=== PATIENT | female | born 1930 | race Caucasian/White ===

== ENCOUNTER 2016-11-03 14:05 | Emergency (ER) | payer MEDICARE, BC ==
[~2016-11-03] VITALS: Ht 162.6 cm; Wt 63.5 kg
[2016-11-03 14:05] VITALS: BP 125/81
[~2016-11-03 14:05] MED LIST: CHOL100013 PO; CIPR500T94 PO; FLUO40CA2 PO; LEVO50TA5 PO; PHEN100C PO; PHEN30CA PO
--- NOTE | 2016-11-03 15:00 | RAD ---
Indication: Fall with left hip pain. Time of exam 1454 hours. 2 views of the left hip were obtained. There is normal femoral acetabular alignment. Femoral head and neck are intact. No fractures are seen. Impression: No acute bony abnormality is detected.
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
[2016-11-03] MEDS ORDERED: IBUP-1027 PO (15:24)
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
== END 2016-11-03 15:35 | disposition home or self-care (01) ==
LOC: ER 14:05
DX: S93.402A Sprain of unspecified ligament of left ankle, initial encounter (principal); S70.02XA Contusion of left hip, initial encounter; Y04.2XXA Assault by strike against or bumped into by another person, initial encounter; Y93.89 Activity, other specified; Y92.89 Other specified places as the place of occurrence of the external cause; Y99.8 Other external cause status
CPT/HCPCS: 29515; 73502; 73610; 99284-25

== ENCOUNTER 2017-03-13 18:28 | Emergency (ER) | payer MEDICARE, BC ==
[~2017-03-13] VITALS: Ht 162.6 cm; Wt 63.5 kg
[~2017-03-13 18:28] MED LIST changes: +IBUP-1027 PO
[2017-03-13 19:15] LABS: BILIRUBIN,URINE NEGATIVE (NEG); GLUCOSE,URINE NEGATIVE (NEG); NITRITE,URINE NEGATIVE (NEG); PH,URINE 5.5; PROTEIN,URINE 30 mg/dL (NEG-TRACE); UROBILINOGEN,URINE 0.2 mg/dL (0.2 mg/dL)
[2017-03-13 19:21] LABS: BARBITURATES NEG (NEG); BENZODIAZEPINES NEG (NEG); CANNABINOIDS NEG (NEG); COCAINE NEG (NEG); METHADONE NEG (NEG); OPIATES NEG (NEG); PHENCYCLIDINE NEG (NEG)
[2017-03-13 19:24] LABS: BACTERIA,URINE FEW /HPF (0-FEW); SQUAMOUS EPITHELIAL CELL,UR FEW /LPF
[2017-03-13 19:45] LABS: BASO % 1 % (0-3); EOS % 0 % (0-3); HEMATOCRIT 38.6 % (36.0-47.0); HEMOGLOBIN 13.4 g/dL (12.0-15.5); LYMPH # 1.5 x10^3/uL (1.0-4.8); LYMPH % 26 % (24-48); MEAN CORPUSCULAR HEMOGLOBIN 30 pg (25-35); MEAN CORPUSCULAR HGB CONC 35 g/dL (31-37); MEAN CORPUSCULAR VOLUME 87 fL (79-100); MONO % 7 % (0-9); NEUT % 65 % (31-73); PLATELET COUNT 242 x10^3/uL (140-400); RED BLOOD COUNT 4.43 x10^6/uL (3.50-5.40); RED CELL DISTRIBUTION WIDTH 13.7 % (11.5-14.5); WHITE BLOOD COUNT 5.6 x10^3/uL (4.0-11.0)
[2017-03-13 19:46] LABS: CALCIUM 8.7 mg/dL (8.5-10.1); CREATININE 0.7 mg/dL (0.6-1.0); POTASSIUM 4.4 mmol/L (3.5-5.1)
[2017-03-13 19:51] LABS: ALBUMIN 3.6 g/dL (3.4-5.0); ALBUMIN/GLOBULIN RATIO 0.9 (1.0-1.7); TOTAL BILIRUBIN 0.9 mg/dL (0.2-1.0); TOTAL PROTEIN 7.7 g/dL (6.4-8.2)
[2017-03-13] MEDS ORDERED: NITROFURANTOIN MONOHYD/M-CRYST 100 MG CAPSULE. PO ONE (20:30)
[2017-03-13] MEDS ORDERED: NITR100C62 PO (21:16)
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
[2017-03-13 22:30] VITALS: BP 150/83
--- NOTE | 2017-03-14 07:51 | EKG ---
[facility] [address] [place] [id number] Test Date: 2017-03-13 Test Time: 19:31:24 Pat Name: LASHONDA MAYER Department: Room: Gender: F Speech Therapy Teacher: : 1930 Requested By: ROBERT TSAI Order Number: [id number] Reading MD: Robyn Obrien Measurements Intervals Pavilion Rate: 66 P: OK: QRS: -7 QRSD: 88 T: 20 QT: 396 QTc: 417 Interpretive Statements SINUS RHYTHM LEFTWARD AXIS NORMAL ECG Electronically Signed On 03-17-2017 10:56:02 CDT by Robyn Obrien
== END 2017-03-13 23:04 | disposition home or self-care (01) ==
LOC: ER 18:28
DX: F32.9 Major depressive disorder, single episode, unspecified (principal); N39.0 Urinary tract infection, site not specified; R45.851 Suicidal ideations; F41.9 Anxiety disorder, unspecified
CPT/HCPCS: 36415; 80053; 80307; 81001; 85025; 87086; 87186; 93005; 99285-25; G0479

== ENCOUNTER 2017-11-22 10:59 | Inpatient (IN) | payer MEDICARE, BC ==
[2017-11-22 12:07] LABS: ADD MAN DIFF? NO
[2017-11-22 12:10] LABS: BASO % 1 % (0-3); EOS % 1 % (0-3); HEMATOCRIT 38.5 % (36.0-47.0); HEMOGLOBIN 13.3 g/dL (12.0-15.5); LYMPH # 1.2 x10^3/uL (1.0-4.8); LYMPH % 30 % (24-48); MEAN CORPUSCULAR HEMOGLOBIN 32 pg (25-35); MEAN CORPUSCULAR HGB CONC 35 g/dL (31-37); MEAN CORPUSCULAR VOLUME 92 fL (79-100); MONO # 0.4 x10^3/uL (0.0-1.1); MONO % 11 % (0-9); NEUT # 2.4 x10^3uL (1.8-7.7); NEUT % 58 % (31-73); PLATELET COUNT 229 x10^3/uL (140-400); RED CELL DISTRIBUTION WIDTH 13.3 % (11.5-14.5); WHITE BLOOD COUNT 4.1 x10^3/uL (4.0-11.0)
[2017-11-22 12:16] LABS: BILIRUBIN,URINE NEGATIVE (NEG); CLARITY,URINE CLEAR; COLOR,URINE YELLOW; GLUCOSE,URINE NEGATIVE (NEG); NITRITE,URINE POSITIVE (NEG); PROTEIN,URINE NEGATIVE (NEG-TRACE)
[2017-11-22 12:24] LABS: ANION GAP 9 (6-14); BACTERIA,URINE MANY /HPF (0-FEW); BLOOD UREA NITROGEN 16 mg/dL (7-20); CALCIUM 7.9 mg/dL (8.5-10.1); CARBON DIOXIDE 27 mmol/L (21-32); CHLORIDE 111 mmol/L (98-107); CREATININE 0.7 mg/dL (0.6-1.0); GFR 78.8; GLUCOSE 90 mg/dL (70-99); POTASSIUM 3.7 mmol/L (3.5-5.1); SODIUM 147 mmol/L (136-145); SQUAMOUS EPITHELIAL CELL,UR MOD /LPF; WBC,URINE 20-40 /HPF (0-4)
[2017-11-22 12:30] LABS: ALBUMIN 2.9 g/dL (3.4-5.0); ALK PHOS 84 U/L (46-116); ALT (SGPT) 19 U/L (14-59); AST (SGOT) 18 U/L (15-37); DIRECT BILIRUBIN 0.1 mg/dL (0.0-0.2); LIPASE 74 U/L (73-393); TOTAL BILIRUBIN 0.3 mg/dL (0.2-1.0); TOTAL PROTEIN 6.7 g/dL (6.4-8.2)
[2017-11-22 12:30] LABS: TROPONINI < 0.017 ng/mL (0.000-0.055)
[2017-11-22] MEDS ORDERED: ONDANSETRON PF 4 MG/2 ML VIAL. IV (13:45)
[2017-11-22] MEDS: ENOXAPARIN 40 MG/0.4 ML SYRINGE. SQ (17:57)
[2017-11-22] MEDS: DIPHTH,PERTUSS(ACELL),TET TOX 0.5 ML DISP.SYRIN. VAX IM (17:57)
[2017-11-22] MEDS: FLUoxetine HCL 20 MG CAPSULE PO (17:58)
[2017-11-22] MEDS: IV NORMAL SALINE 1000ML BAG 1,000 ML IV ×2 (18:00→21:43)
[2017-11-22] MEDS ORDERED: MAGNESIUM HYDROXIDE 2,400 MG/30 ML ORAL.SUSP. PO (21:00)
[2017-11-22] MEDS ORDERED: OLANZapine 2.5 MG TABLET PO (21:00)
[2017-11-22] MEDS ORDERED: METHYL SALICYLATE/MENTHOL TOPICAL OINTMENT 29GM TUBE. TP ×2 (21:00)
[2017-11-22] MEDS ORDERED: DIPHENOXYLATE/ATROPINE TABLET. PO (21:00)
[2017-11-22] MEDS: PHENYTOIN SODIUM EXTENDED 100 MG CAPSULE PO (21:42)
[2017-11-22] MEDS: PHENYTOIN SODIUM EXTENDED 30 MG CAPSULE. PO (21:42)
[2017-11-22] MEDS: VALPROIC ACID (AS SODIUM SALT) 250 MG/5 ML SOLUTION. PO (21:42)
[2017-11-22] MEDS: traZODone 50 MG TABLET. PO (21:42)
[2017-11-22] MEDS: risperiDONE 0.25 MG TABLET. PO (21:43)
[2017-11-23] MEDS: ACETAMINOPHEN 325 MG TABLET. PO (01:23)
[2017-11-23] MEDS: MORPHINE SULFATE 4 MG/ML DISP.SYRIN. IV (04:15)
[2017-11-23] MEDS: IV NORMAL SALINE 1000ML BAG 1,000 ML IV (04:16)
[2017-11-23 04:39] LABS: ADD MAN DIFF? NO
[2017-11-23 04:54] LABS: BASO % 1 % (0-3); EOS % 1 % (0-3); HEMATOCRIT 33.4 % (36.0-47.0); HEMOGLOBIN 11.7 g/dL (12.0-15.5); LYMPH # 1.3 x10^3/uL (1.0-4.8); LYMPH % 40 % (24-48); MEAN CORPUSCULAR HEMOGLOBIN 33 pg (25-35); MEAN CORPUSCULAR HGB CONC 35 g/dL (31-37); MEAN CORPUSCULAR VOLUME 94 fL (79-100); MONO # 0.4 x10^3/uL (0.0-1.1); MONO % 12 % (0-9); NEUT # 1.6 x10^3uL (1.8-7.7); NEUT % 47 % (31-73); PLATELET COUNT 186 x10^3/uL (140-400); RED BLOOD COUNT 3.55 x10^6/uL (3.50-5.40); RED CELL DISTRIBUTION WIDTH 13.3 % (11.5-14.5); WHITE BLOOD COUNT 3.4 x10^3/uL (4.0-11.0)
[2017-11-23 05:18] LABS: ANION GAP 8 (6-14); BLOOD UREA NITROGEN 12 mg/dL (7-20); CALCIUM 7.4 mg/dL (8.5-10.1); CARBON DIOXIDE 25 mmol/L (21-32); CHLORIDE 110 mmol/L (98-107); CREATININE 0.6 mg/dL (0.6-1.0); GFR 94.1; GLUCOSE 92 mg/dL (70-99); POTASSIUM 3.5 mmol/L (3.5-5.1); SODIUM 143 mmol/L (136-145)
[2017-11-23] MEDS: LEVOTHYROXINE 50 MCG TABLET PO (05:54)
[2017-11-23] MEDS: VALPROIC ACID (AS SODIUM SALT) 250 MG/5 ML SOLUTION. PO ×2 (09:36→21:45)
[2017-11-23] MEDS: CLOPIDOGREL BISULFATE 75 MG TABLET PO (09:37)
[2017-11-23] MEDS: FLUoxetine HCL 20 MG CAPSULE PO (09:37)
[2017-11-23] MEDS: CHOLECALCIFEROL (VITAMIN D3) 1,000 UNIT TABLET PO (09:37)
[2017-11-23] MEDS: CYANOCOBALAMIN (VITAMIN B-12) 1,000 MCG TABLET. PO (09:37)
[2017-11-23] MEDS: LORazepam 1 MG TABLET PO (12:24)
[2017-11-23] MEDS: ENOXAPARIN 40 MG/0.4 ML SYRINGE. SQ (15:57)
[2017-11-23] MEDS: cefTRIAXone IV Push 1 GM VIAL. IVP (15:58)
[2017-11-23] MEDS: risperiDONE 0.25 MG TABLET. PO (21:45)
[2017-11-23] MEDS: PHENYTOIN SODIUM EXTENDED 100 MG CAPSULE PO (21:45)
[2017-11-23] MEDS: traZODone 50 MG TABLET. PO (21:46)
[2017-11-23] MEDS: PHENYTOIN SODIUM EXTENDED 30 MG CAPSULE. PO (21:46)
[2017-11-23] MEDS: LACTOBACILLUS RHAMNOSUS GG 1 CAPSULE. PO (21:46)
[2017-11-24] MEDS: LEVOTHYROXINE 50 MCG TABLET PO (06:28)
[2017-11-24] MEDS: ACETAMINOPHEN 325 MG TABLET. PO (06:28)
[2017-11-24] MEDS: CLOPIDOGREL BISULFATE 75 MG TABLET PO (08:40)
[2017-11-24] MEDS: LACTOBACILLUS RHAMNOSUS GG 1 CAPSULE. PO ×2 (08:40→20:39)
[2017-11-24] MEDS: VALPROIC ACID (AS SODIUM SALT) 250 MG/5 ML SOLUTION. PO ×2 (08:40→20:38)
[2017-11-24] MEDS: FLUoxetine HCL 20 MG CAPSULE PO (08:40)
[2017-11-24] MEDS: CHOLECALCIFEROL (VITAMIN D3) 1,000 UNIT TABLET PO (08:41)
[2017-11-24] MEDS: CYANOCOBALAMIN (VITAMIN B-12) 1,000 MCG TABLET. PO (08:41)
[2017-11-24] MEDS: LORazepam 1 MG TABLET PO (14:33)
[2017-11-24] MEDS: cefTRIAXone IV Push 1 GM VIAL. IVP (14:40)
[2017-11-24] MEDS: ENOXAPARIN 40 MG/0.4 ML SYRINGE. SQ (16:00)
[2017-11-24] MEDS: PHENYTOIN SODIUM EXTENDED 30 MG CAPSULE. PO (20:39)
[2017-11-24] MEDS: PHENYTOIN SODIUM EXTENDED 100 MG CAPSULE PO (20:39)
[2017-11-24] MEDS: traZODone 50 MG TABLET. PO (20:39)
[2017-11-24] MEDS: risperiDONE 0.25 MG TABLET. PO (20:39)
[2017-11-25] MEDS: LEVOTHYROXINE 50 MCG TABLET PO (06:16)
[2017-11-25] MEDS: CYANOCOBALAMIN (VITAMIN B-12) 1,000 MCG TABLET. PO (09:02)
[2017-11-25] MEDS: LACTOBACILLUS RHAMNOSUS GG 1 CAPSULE. PO (09:02)
[2017-11-25] MEDS: CHOLECALCIFEROL (VITAMIN D3) 1,000 UNIT TABLET PO (09:02)
[2017-11-25] MEDS: FLUoxetine HCL 20 MG CAPSULE PO (09:03)
[2017-11-25] MEDS: CLOPIDOGREL BISULFATE 75 MG TABLET PO (09:03)
[2017-11-25] MEDS: LORazepam 1 MG TABLET PO (09:03)
[2017-11-25] MEDS: VALPROIC ACID (AS SODIUM SALT) 250 MG/5 ML SOLUTION. PO (09:04)
[2017-11-25] MEDS: cefTRIAXone IV Push 1 GM VIAL. IVP (15:44)
[2017-11-25] MEDS: ENOXAPARIN 40 MG/0.4 ML SYRINGE. SQ (15:44)
== END 2017-11-25 18:18 | disposition home or self-care (01) | DRG 689 ==
LOC: ER 10:59 → 6 SOUTH 13:33
DX: N39.0 Urinary tract infection, site not specified (principal); G93.41 Metabolic encephalopathy; F03.90 Unspecified dementia, unspecified severity, without behavioral disturbance, psychotic disturbance, mood disturbance, and anxiety; E78.5 Hyperlipidemia, unspecified; E89.0 Postprocedural hypothyroidism; F32.9 Major depressive disorder, single episode, unspecified; F41.9 Anxiety disorder, unspecified; J30.2 Other seasonal allergic rhinitis; M19.90 Unspecified osteoarthritis, unspecified site; S60.812A Abrasion of left wrist, initial encounter; X78.9XXA Intentional self-harm by unspecified sharp object, initial encounter; Z81.8 Family history of other mental and behavioral disorders; Z85.3 Personal history of malignant neoplasm of breast; Z85.820 Personal history of malignant melanoma of skin; Z86.73 Personal history of transient ischemic attack (TIA), and cerebral infarction without residual deficits; Z90.11 Acquired absence of right breast and nipple; Z90.710 Acquired absence of both cervix and uterus; Z90.49 Acquired absence of other specified parts of digestive tract; Y93.89 Activity, other specified; Y92.89 Other specified places as the place of occurrence of the external cause; Y99.8 Other external cause status
CPT/HCPCS: 36415; 70450; 80048; 80076; 81001; 83690; 84484; 85025; 87086; 87186; 90715; 93005; 96374; 99285; 99285-25; J0690; J0696; J1650; J2270; J7030

== ENCOUNTER 2018-01-12 18:32 | Emergency (ER) | payer MEDICARE, MEDICAID | END 2018-01-12 23:22 | disposition home or self-care (01) | LOC: ER 18:32 | DX: S09.90XA Unspecified injury of head, initial encounter (principal); W18.39XA Other fall on same level, initial encounter; Y93.89 Activity, other specified; Y99.8 Other external cause status; Y92.89 Other specified places as the place of occurrence of the external cause | CPT/HCPCS: 70450; 72125; 99284-25 ==

== ENCOUNTER 2018-02-10 16:04 | Emergency (ER) | payer MEDICARE, MEDICAID ==
[~2018-02-10] VITALS: Ht 162.6 cm; Wt 63.5 kg
[~2018-02-10 16:04] MED LIST changes: +ACET325T9 PO; +CHOL2000 PO; +CLOP75TA PO; +CYAN10005 PO; +DIPH1TAB PO; +FLUO40CA9 PO; +LORA-434 PO; +MAGN400O7 PO; +METH85CR17 TP; +NITR100C62 PO; +OLAN2.5T3 PO; +RISP0.5T24 PO; +TRAZ-85 PO; +VALP250S PO
--- NOTE | 2018-02-10 16:16 | PHYS DOC ---
Past Medical History Past Medical History: Anxiety, Cancer, Depression, Seizure, UTI, Other Additional Past Medical Histor: BREAST CANCER, MELANOMA Past Surgical History: Cancer Surgery, Cholecystectomy, Hysterectomy, Other Additional Past Surgical Histo: R MASTECTOMY, THYROIDECTOMY Alcohol Use: None Drug Use: None Adult General Chief Complaint Chief Complaint: MECHANICAL FALL HPI HPI 87-year-old female presenting to the emergency room and a mechanical fall while at her nursing care facility. She was getting a snack, trying to place a dollar into the machine but was having trouble with the machine. she tripped and fell backwards and hit the back of her head. She denies loss of consciousness. She reports being on blood thinners however the patient's alf facility sent the patient's paperwork with her which shows her medications. There is no blood thinner on the list they gave us. The patient has a history of seizures and takes phenytoin. No tongue biting occurred, no loss of consciousness, no fecal or urinary incontinence. Review of systems is negative for neck pain chest pain shortness of breath abdominal pain or any other injuries. All other review of systems is negative unless otherwise noted in history of present illness. ED course: 87-year-old female presenting with head injury after fall. Head CT and neck CT obtained along with blood work. Secondary survey shows no other signs of acute traumatic injury. CBC unremarkable. Head and neck CT are unremarkable for acute injury. Coags within normal limits. Chemistry pending. Plan is to discharge patient if chemistry panel is unremarkable. Dr. Carrillo will f/u on chem panel. Review of Systems Review of Systems SEE ABOVE. Allergies Allergies Allergies Coded Allergies Type Severity Reaction Last Updated Verified No Known Drug Allergies 04/12/16 No Physical Exam Physical Exam SEE ABOVE Constitutional: Well developed, well nourished, no acute distress, non-toxic appearance. [] HENT: Normocephalic, patient has an abrasion to the posterior occiput. Bleeding is well controlled. No lacerations. No depressed skull fracture to palpation. Bilateral external ears normal, oropharynx moist, no oral exudates, nose normal. [] Eyes: PERRLA, EOMI, conjunctiva normal, no discharge. [] Neck: Normal range of motion, no tenderness, supple, no stridor. [] Cardiovascular:Heart rate regular rhythm, no murmur [] Lungs & Thorax: Bilateral breath sounds clear to auscultation [] Abdomen: Bowel sounds normal, soft, no tenderness, no masses, no pulsatile masses. [] Skin: Warm, dry, no erythema, no rash. [] Back: No tenderness, no CVA tenderness. [] Extremities: No tenderness, no cyanosis, no clubbing, ROM intact, no edema. Abrasions lacerations or ecchymosis to the arms or legs. Neurologic: Alert and oriented X 3, normal motor function, normal sensory function, no focal deficits noted. [] Psychologic: Affect normal, judgement normal, mood normal. [] Current Patient Data Vital Signs Vital Signs Date Time Temp Pulse Resp B/P (MAP) Pulse Ox O2 Delivery O2 Flow Rate FiO2 02/10/18 16:04 98.1 66 18 140/65 (90) 97 Room Air 98.1 Lab Values Laboratory Tests Test 02/10/18 17:22 White Blood Count 3.8 x10^3/uL (4.0-11.0) L Red Blood Count 3.89 x10^6/uL (3.50-5.40) Hemoglobin 12.5 g/dL (12.0-15.5) Hematocrit 36.3 % (36.0-47.0) Mean Corpuscular Volume 93 fL (79-100) Mean Corpuscular Hemoglobin 32 pg (25-35) Mean Corpuscular Hemoglobin Concent 35 g/dL (31-37) Red Cell Distribution Width 13.9 % (11.5-14.5) Platelet Count 196 x10^3/uL (140-400) Neutrophils (%) (Auto) 53 % (31-73) Lymphocytes (%) (Auto) 35 % (24-48) Monocytes (%) (Auto) 9 % (0-9) Eosinophils (%) (Auto) 2 % (0-3) Basophils (%) (Auto) 1 % (0-3) Neutrophils # (Auto) 2.0 x10^3uL (1.8-7.7) Lymphocytes # (Auto) 1.3 x10^3/uL (1.0-4.8) Monocytes # (Auto) 0.3 x10^3/uL (0.0-1.1) Eosinophils # (Auto) 0.1 x10^3/uL (0.0-0.7) Basophils # (Auto) 0.0 x10^3/uL (0.0-0.2) Prothrombin Time 13.9 SEC (11.7-14.0) Prothrombin Time INR 1.1 (0.8-1.1) PTT 29 SEC (24-38) Laboratory Tests 02/10/18 17:22 EKG EKG [] Radiology/Procedures Radiology/Procedures [] Course & Med Decision Making Course & Med Decision Making Pertinent Labs and Imaging studies reviewed. (See chart for details) [] Dragon Disclaimer Dragon Disclaimer This electronic medical record was generated, in whole or in part, using a voice recognition dictation system. Departure Departure Impression: Primary Impression: Head injury Referrals: RENAE PARADA (PCP) Patient Instructions: Head Injury, Adult Additional Instructions: Thank you for allowing us to participate in your care today. Return to the emergency department you have any new or worsening symptoms, or if you are concerned for any reason. Return to emergency department if you have any new or concerning symptoms including but not limited to fever, chills, nausea, vomiting, intractable pain, any new rashes, chest pain, shortness of air , uncontrolled bleeding, difficulty breathing, and/or vision loss. Follow up with your primary care physician within 3 days. Call your Primary Doctor tomorrow and inform them of your visit today. If you do not have a primary care provider we are happy to provide you with a list of our primary care providers contact information. This condition should be evaluated by your primary care physician and any recommended consulting services for continued management within 2-3 days after discharge. If at any time, you are having difficulty getting into your primary care doctor or a specialist, return to the emergency department. PETE VICTOR MD Feb 10, 2018 16:16
--- NOTE | 2018-02-10 16:56 | RAD ---
CT HEAD AND CERVICAL SPINE WO Indication: Head injury. Neck pain. Exposure: One or more of the following individualized dose reduction techniques were utilized for this examination: 1. Automated exposure control 2. Adjustment of the mA and/or kV according to patient size 3. Use of iterative reconstruction technique. Comparison: January 19, 2018 Contrast: None HEAD Note that the head is asymmetrically positioned in the scanner, which may limit accuracy of the study. No evidence of acute intracranial hemorrhage or abnormal extra-axial fluid collection. No evidence of mass effect or midline shift. Low-density in the white matter bilaterally, a nonspecific finding, but which is commonly due to chronic small vessel ischemic disease in a patient of this age. Prominence of ventricles and sulci, compatible with involutional change or atrophy. Chronic appearing encephalomalacia in the right temporal and occipital lobe is again identified. Visualized orbits are unremarkable. Visualized paranasal sinuses and mastoids are clear. No evidence of depressed skull fracture, although a point of impact is not known. There appears to be some very mild density and swelling at the high left parietal lobe may represent a small hematoma. Impression:Chronic findings as detailed above. Negative for acute intracranial hemorrhage or mass effect. There may be a very small high left parietal scalp hematoma. CERVICAL SPINE C1 ring: Intact Cervico-occipital junction: Intact C1-C2 relationship: Within normal limits Fracture: No acute fracture identified. Spondylosis: Degenerative spondylosis appearance and alignment appears similar as prior study. Fusion of C5-C6. There is multilevel spinal canal narrowing and neural foraminal narrowing. Alignment: Reversal of the normal cervical lordosis, can be due to muscle spasm or positioning. Facets: Degenerative changes. No evidence of perched or locked facet. Prevertebral soft tissues: No significant swelling or hematoma Thyroid: Large right thyroid mass again identified. Lung apices: Clear Impression: 1. No evidence of acute fracture or subluxation. 2. Degenerative spondylosis and stenosis. 3. Large thyroid mass is again identified. Electronically signed by: Timothy Russ MD (02/10/2018 4:52 PM) [id number]
[2018-02-10 17:40] LABS: BASO % 1 % (0-3); EOS # 0.1 x10^3/uL (0.0-0.7); EOS % 2 % (0-3); HEMATOCRIT 36.3 % (36.0-47.0); HEMOGLOBIN 12.5 g/dL (12.0-15.5); LYMPH # 1.3 x10^3/uL (1.0-4.8); LYMPH % 35 % (24-48); MEAN CORPUSCULAR HEMOGLOBIN 32 pg (25-35); MEAN CORPUSCULAR HGB CONC 35 g/dL (31-37); MEAN CORPUSCULAR VOLUME 93 fL (79-100); MONO # 0.3 x10^3/uL (0.0-1.1); MONO % 9 % (0-9); NEUT % 53 % (31-73); PLATELET COUNT 196 x10^3/uL (140-400); RED BLOOD COUNT 3.89 x10^6/uL (3.50-5.40); RED CELL DISTRIBUTION WIDTH 13.9 % (11.5-14.5); WHITE BLOOD COUNT 3.8 x10^3/uL (4.0-11.0)
[2018-02-10 17:49] LABS: PROTHROMBIN TIME PATIENT 13.9 SEC (11.7-14.0)
[2018-02-10 17:55] LABS: CALCIUM 8.2 mg/dL (8.5-10.1); CREATININE 0.8 mg/dL (0.6-1.0); GFR 67.5; POTASSIUM 3.8 mmol/L (3.5-5.1)
[2018-02-10 18:18] VITALS: BP 124/70
== END 2018-02-10 20:02 | disposition home or self-care (01) ==
LOC: ER 16:04
DX: S09.90XA Unspecified injury of head, initial encounter (principal); F41.9 Anxiety disorder, unspecified; F32.9 Major depressive disorder, single episode, unspecified; Z87.440 Personal history of urinary (tract) infections; W00.0XXA Fall on same level due to ice and snow, initial encounter; Y93.89 Activity, other specified; Y92.128 Other place in nursing home as the place of occurrence of the external cause; Y99.8 Other external cause status
CPT/HCPCS: 36415; 70450; 72125; 80048; 85025; 85610; 85730; 99285

== ENCOUNTER 2018-03-21 13:42 | Emergency (ER) | payer MEDICARE, OTHER ==
[~2018-03-21] VITALS: Ht 162.6 cm; Wt 63.5 kg
[2018-03-21 14:37] LABS: BASO % 1 % (0-3); EOS % 1 % (0-3); HEMATOCRIT 36.5 % (36.0-47.0); HEMOGLOBIN 12.7 g/dL (12.0-15.5); LYMPH # 1.1 x10^3/uL (1.0-4.8); LYMPH % 40 % (24-48); MEAN CORPUSCULAR HEMOGLOBIN 33 pg (25-35); MEAN CORPUSCULAR HGB CONC 35 g/dL (31-37); MEAN CORPUSCULAR VOLUME 94 fL (79-100); MONO # 0.3 x10^3/uL (0.0-1.1); MONO % 11 % (0-9); NEUT # 1.3 x10^3uL (1.8-7.7); NEUT % 47 % (31-73); PLATELET COUNT 290 x10^3/uL (140-400); RED BLOOD COUNT 3.88 x10^6/uL (3.50-5.40); RED CELL DISTRIBUTION WIDTH 13.8 % (11.5-14.5); WHITE BLOOD COUNT 2.7 x10^3/uL (4.0-11.0)
[2018-03-21 14:45] LABS: CALCIUM 8.8 mg/dL (8.5-10.1); CREATININE 0.9 mg/dL (0.6-1.0); POTASSIUM 4.1 mmol/L (3.5-5.1)
--- NOTE | 2018-03-21 14:59 | RAD ---
Pelvis with left hip, 3 views, 03/21/2018: HISTORY: Fall, left hip pain No fracture or dislocation is identified. There is spurring arising from the left greater trochanter. There is minimal spurring of the left hip joint. 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 Scattered arterial calcifications are present. IMPRESSION: No acute bony abnormality is detected. Electronically signed by: Mingo Winter MD (03/21/2018 2:55 PM) [facility]
--- NOTE | 2018-03-21 15:17 | EKG ---
[facility] [address] [place] [address] Test Date: 2018-03-21 Test Time: 13:59:37 Pat Name: LASHONDA MAYER Department: Room: Gender: F [employer]: : [id number] Requested By: JAMAAL NICHOLS Order Number: [id number] Reading MD: Ravindra Wyatt Measurements Intervals [place] Rate: 75 P: -26 [place]: 200 QRS: -5 QRSD: 86 T: 49 QT: 396 QTc: 444 Interpretive Statements SINUS RHYTHM LEFTWARD AXIS NON SPECIFIC T ABNORMALITY BORDERLINE ECG Compared to ECG 01/19/2018 19:15:47 Left-axis deviation now present T-wave abnormality now present Electronically Signed On 03-22-2018 15:21:35 CDT by Ravindra Wyatt
--- NOTE | 2018-03-21 15:19 | RAD ---
CT of the head without contrast, 03/21/2018: HISTORY: Fall, head injury Comparison is made to a study from 02/10/2018. There is moderate cerebral atrophy. There are moderate patchy lucencies in the deep white matter bilaterally compatible with chronic ischemic change. Mild encephalomalacia in the right posterior temporal/occipital region is unchanged and is compatible with an old infarct. There is no evidence of acute intracranial hemorrhage or mass effect. IMPRESSION: 1. Chronic findings as described above. 2. No acute intracranial abnormality is detected. CT of the cervical spine without contrast, 03/21/2018: HISTORY: Fall, head injury Noncontrast scans were obtained with multiplanar reconstructions produced. There is fusion of the C5 and C6 vertebral bodies There is severe disc space narrowing at C6-7 with marginal spurring. There are additional prominent spurs at C4-5 there are moderate degenerative changes involving multiple facet joints bilaterally. The combination of findings is causing mild central spinal stenosis and moderate foraminal stenosis at several levels. No acute fracture or dislocation is identified. There is enlargement of right lobe of the thyroid gland, also noted on 02/10/2018. There are surgical clips related to the left thyroid lobe. IMPRESSION: 1. Moderate multilevel degenerative change. 2. No acute bony abnormality is detected. 3. Enlarged right thyroid lobe. Electronically signed by: Mingo Winter MD (03/21/2018 3:16 PM) [facility]
[2018-03-21 15:34] LABS: BILIRUBIN,URINE NEGATIVE (NEG); CLARITY,URINE CLEAR; COLOR,URINE YELLOW; NITRITE,URINE NEGATIVE (NEG); PROTEIN,URINE NEGATIVE (NEG-TRACE)
[2018-03-21 15:44] LABS: BACTERIA,URINE 0 /HPF (0-FEW); SQUAMOUS EPITHELIAL CELL,UR FEW /LPF; WBC,URINE 0 /HPF (0-4)
--- NOTE | 2018-03-21 16:25 | PHYS DOC ---
Past Medical History Past Medical History: Anxiety, Cancer, Depression, Seizure, UTI, Other Additional Past Medical Histor: BREAST CANCER, MELANOMA Past Surgical History: Cancer Surgery, Cholecystectomy, Hysterectomy, Other Additional Past Surgical Histo: R MASTECTOMY, THYROIDECTOMY Alcohol Use: None Drug Use: None Adult General Chief Complaint Chief Complaint: DIZZY/LIGHT HEADED HPI HPI Patient is a 87 year old female who presents with feeling dizzy. Patient states she had been having episodes of dizziness that started earlier this morning. She relates a couple different episodes today. She was attempting to ambulate with her walker which is at baseline when she did sustain a fall. She states she struck her head on the floor but did not lose consciousness. The patient also complains of left hip pain. Regarding the dizziness, the patient denies recent illness. She has no chest pain, fever, chills, shortness of breath , palpitations. She describes a feeling of lightheadedness and denies any vertiginous symptoms. She also denies focal neurologic complaints. Review of Systems Review of Systems Constitutional: Denies fever or chills Eyes: Denies change in visual acuity HENT: Denies nasal congestion Respiratory: Denies cough Cardiovascular: No additional information GI: Denies abdominal pain, nausea, vomiting : Denies dysuria Musculoskeletal: Denies back pain Integument: Denies rash Neurologic: Denies headache or focal neuro complaints Endocrine: Denies polyuria All other systems were reviewed and found to be within normal limits, except as documented in this note. Current Medications Current Medications Current Medications Medications (Trade) Dose Ordered Sig/Roxana Start Time Stop Time Status Last Admin Dose Admin Sodium Chloride 500 ml @ 500 mls/hr 1X ONCE 03/21/18 16:45 03/21/18 17:44 DC 03/21/18 16:54 500 MLS/HR Allergies Allergies Allergies Coded Allergies Type Severity Reaction Last Updated Verified No Known Drug Allergies 04/12/16 No Physical Exam Physical Exam Constitutional: Well developed, well nourished, no acute distress, non-toxic appearance. HENT: Normocephalic, minor abrasion over the left scalp that does not require suture, no face trauma, TM's intact and normal Eyes: PERRLA, EOMI, conjunctiva normal Neck: Normal range of motion, no tenderness, supple Cardiovascular:Heart rate regular rhythm, no murmur Lungs & Thorax: Bilateral breath sounds clear to auscultation Abdomen: Bowel sounds normal, soft, no tenderness Skin: Warm, dry, no erythema Back: No tenderness Extremities: No tenderness, no edema, no obvious trauma. + some tenderness with passive ROM of the left hip joint. distal pulses 2+ Neurologic: Alert and oriented X 3, normal motor function Psychologic: Affect normal Current Patient Data Vital Signs Vital Signs Date Time Temp Pulse Resp B/P (MAP) Pulse Ox O2 Delivery O2 Flow Rate FiO2 03/21/18 17:42 73 12 93 03/21/18 13:45 98.5 134/63 (86) Room Air 98.5 Lab Values Laboratory Tests Test 03/21/18 13:55 03/21/18 15:21 White Blood Count 2.7 x10^3/uL (4.0-11.0) L Red Blood Count 3.88 x10^6/uL (3.50-5.40) Hemoglobin 12.7 g/dL (12.0-15.5) Hematocrit 36.5 % (36.0-47.0) Mean Corpuscular Volume 94 fL (79-100) Mean Corpuscular Hemoglobin 33 pg (25-35) Mean Corpuscular Hemoglobin Concent 35 g/dL (31-37) Red Cell Distribution Width 13.8 % (11.5-14.5) Platelet Count 290 x10^3/uL (140-400) Neutrophils (%) (Auto) 47 % (31-73) Lymphocytes (%) (Auto) 40 % (24-48) Monocytes (%) (Auto) 11 % (0-9) H Eosinophils (%) (Auto) 1 % (0-3) Basophils (%) (Auto) 1 % (0-3) Neutrophils # (Auto) 1.3 x10^3uL (1.8-7.7) L Lymphocytes # (Auto) 1.1 x10^3/uL (1.0-4.8) Monocytes # (Auto) 0.3 x10^3/uL (0.0-1.1) Eosinophils # (Auto) 0.0 x10^3/uL (0.0-0.7) Basophils # (Auto) 0.0 x10^3/uL (0.0-0.2) Sodium Level 136 mmol/L (136-145) Potassium Level 4.1 mmol/L (3.5-5.1) Chloride Level 103 mmol/L (98-107) Carbon Dioxide Level 27 mmol/L (21-32) Anion Gap 6 (6-14) Blood Urea Nitrogen 17 mg/dL (7-20) Creatinine 0.9 mg/dL (0.6-1.0) Estimated GFR (Cockcroft-Gault) 59.0 Glucose Level 128 mg/dL (70-99) H Calcium Level 8.8 mg/dL (8.5-10.1) Troponin I Quantitative < 0.017 ng/mL (0.000-0.055) Urine Collection Type U cath Urine Color Yellow Urine Clarity Clear Urine pH 7.0 Urine Specific [place] 1.015 Urine Protein Negative mg/dL (NEG-TRACE) Urine Glucose (UA) Negative mg/dL (NEG) Urine Ketones (Stick) Negative mg/dL (NEG) Urine Blood Trace (NEG) Urine Nitrite Negative (NEG) Urine Bilirubin Negative (NEG) Urine Urobilinogen Dipstick 1.0 mg/dL (0.2 mg/dL) Urine Leukocyte Esterase Negative (NEG) Urine RBC 3-5 /HPF (0-2) Urine WBC 0 /HPF (0-4) Urine Squamous Epithelial Cells Few /LPF Urine Bacteria 0 /HPF (0-FEW) Urine Mucus Mod /LPF Laboratory Tests 03/21/18 13:55 Laboratory Tests 03/21/18 13:55 EKG EKG No STEMI, NSR Interpretation Time: 14:05 Radiology/Procedures Radiology/Procedures CT head and c-spine: no acute XR right hip: no acute Course & Med Decision Making Course & Med Decision Making Pertinent Labs and Imaging studies reviewed. (See chart for details) Patient is evaluated in the ER after a fall in the senior care. She does complain of some generalized weakness. Basic labs and EKG are ordered. The initial EKG does not reveal any acute findings. Neuro exam is normal. 16:25: All results are reviewed. Troponin is not elevated. The rest of the patient's work-up is negative for acute findings. 17:45: Workup is negative other than minor abrasion over the scalp. At the shot is ordered. Patient was ambulated about the department prior to discharge. She ambulated very well. She was stable on her feet and at baseline given that she uses a walker. Patient is discharged to return back to the senior care. She was also given a small fluid bolus in the ER. Patient subjectively felt better at the time of discharge. Dragon Disclaimer Dragon Disclaimer This electronic medical record was generated, in whole or in part, using a voice recognition dictation system. Departure Departure Referrals: RENAE PARADA (PCP) JAMAAL NICHOLS DO Mar 21, 2018 16:25
[2018-03-21] MEDS ORDERED: IV NORMAL SALINE 500ML BAG 500 ML IV ONE (16:45)
--- NOTE | 2018-03-21 16:52 | RAD ---
PORTABLE CHEST 1V Clinical indications: Dizzy, elevated BNP COMPARISON: January 19, 2018. Findings: No acute lung infiltrate or pleural effusion or pulmonary edema or lung mass or pneumothorax is seen. Again seen is a large calcified granulomatous lymph node within the right azygos region. Again seen is deviation of the trachea towards left side which may be due to enlarged right lobe of the thyroid gland. Again seen is a small hiatal hernia. The heart size is unremarkable given AP magnification. Impression: No acute radiographic abnormality is seen. Possible enlargement of the right lobe of the thyroid gland. Hiatal hernia. Electronically signed by: Javier Ruano MD (03/21/2018 4:48 PM) [id number]
[2018-03-21] MEDS ORDERED: DIPHTH,PERTUSS(ACELL),TET TOX 0.5 ML DISP.SYRIN. VAX IM ONE (18:00)
[2018-03-21 18:40] VITALS: BP 112/52
== END 2018-03-21 19:55 | disposition home or self-care (01) ==
LOC: ER 13:42
DX: S00.01XA Abrasion of scalp, initial encounter (principal); M25.552 Pain in left hip; R42 Dizziness and giddiness; F41.9 Anxiety disorder, unspecified; F32.9 Major depressive disorder, single episode, unspecified; W18.09XA Striking against other object with subsequent fall, initial encounter; Y93.89 Activity, other specified; Y92.89 Other specified places as the place of occurrence of the external cause; Y99.8 Other external cause status
CPT/HCPCS: 36415; 70450; 71045; 72125; 73502; 80048; 81001; 84484; 85025; 90471; 90715; 93005; 96360; 99285; J7040; P9612